=== PATIENT | male | born 1990 | race Caucasian/White ===

== ENCOUNTER 2018-08-19 05:54 | Emergency (ER) | payer OTHER ==
[~2018-08-19] VITALS: Ht 172.7 cm; Wt 68.0 kg
[2018-08-19 06:03] VITALS: BP 110/69
[2018-08-19] MEDS ORDERED: CENTANY30 GM NASAL (06:20)
== END 2018-08-19 06:42 | disposition home or self-care (01) ==
LOC: M.ERS 05:54
DX: T20.44XA Corrosion of unspecified degree of nose (septum), initial encounter (principal); T32.0 Corrosions involving less than 10% of body surface; F15.90 Other stimulant use, unspecified, uncomplicated; Z88.1 Allergy status to other antibiotic agents; Y93.89 Activity, other specified; Y92.89 Other specified places as the place of occurrence of the external cause; Y99.8 Other external cause status

== ENCOUNTER 2018-09-21 06:55 | Emergency (ER) | payer OTHER ==
[~2018-09-21] VITALS: Ht 172.7 cm; Wt 68.0 kg
[~2018-09-21 06:55] MED LIST: CENTANY30 GM NASAL
[2018-09-21 07:03] VITALS: BP 141/85
[2018-09-21] MEDS ORDERED: ULTRAM 50MG TAB50 MG PO (07:31)
[2018-09-21] MEDS ORDERED: FLEXERIL PO (07:31)
== END 2018-09-21 07:39 | disposition home or self-care (01) ==
LOC: M.ERS 06:55
DX: S29.012A Strain of muscle and tendon of back wall of thorax, initial encounter (principal); Z88.1 Allergy status to other antibiotic agents; V43.52XA Car driver injured in collision with other type car in traffic accident, initial encounter; Y93.89 Activity, other specified; Y92.89 Other specified places as the place of occurrence of the external cause; Y99.8 Other external cause status

== ENCOUNTER 2018-09-27 18:55 | Emergency (ER) | payer OTHER ==
[~2018-09-27] VITALS: Ht 172.7 cm; Wt 68.0 kg
[~2018-09-27 18:55] MED LIST changes: +FLEXERIL PO; +ULTRAM 50MG TAB50 MG PO
[2018-09-27] MEDS ORDERED: CARAFATE1 GM/10 ML PO (19:34)
[2018-09-27] MEDS ORDERED: AMOXICILLIN 50500 MG PO (19:34)
[2018-09-27 20:02] VITALS: BP 119/77
== END 2018-09-27 20:04 | disposition home or self-care (01) ==
LOC: M.ERS 18:55
DX: J02.9 Acute pharyngitis, unspecified (principal); Z88.1 Allergy status to other antibiotic agents

== ENCOUNTER 2018-10-01 22:08 | Emergency (ER) | payer OTHER ==
[~2018-10-01] VITALS: Ht 172.7 cm; Wt 68.0 kg
[~2018-10-01 22:08] MED LIST changes: +AMOXICILLIN 50500 MG PO; +CARAFATE1 GM/10 ML PO
[2018-10-01] MEDS ORDERED: DOXYCYCLINE 10100 M1 PO (22:56)
[2018-10-01 23:04] VITALS: BP 120/69
== END 2018-10-01 23:04 | disposition home or self-care (01) ==
LOC: M.ERS 22:08
DX: J06.9 Acute upper respiratory infection, unspecified (principal); F17.200 Nicotine dependence, unspecified, uncomplicated; Z88.1 Allergy status to other antibiotic agents

== ENCOUNTER 2018-10-13 18:56 | Emergency (ER) | payer OTHER ==
[~2018-10-13] VITALS: Ht 172.7 cm; Wt 68.0 kg
[~2018-10-13 18:56] MED LIST changes: +DOXYCYCLINE 10100 M1 PO
[2018-10-13 19:07] VITALS: BP 115/71
[2018-10-13] MEDS ORDERED: FLONASE 0.05%50 MCG NASAL (19:29)
[2018-10-13] MEDS ORDERED: DOXYCYCLINE 10100 MG PO (19:29)
== END 2018-10-13 19:44 | disposition home or self-care (01) ==
LOC: M.ERS 18:56
DX: J01.00 Acute maxillary sinusitis, unspecified (principal); R09.82 Postnasal drip; Z88.1 Allergy status to other antibiotic agents

== ENCOUNTER 2018-11-17 21:58 | Emergency (ER) | payer OTHER ==
[~2018-11-17] VITALS: Ht 172.7 cm; Wt 65.8 kg
[~2018-11-17 21:58] MED LIST changes: +DOXYCYCLINE 10100 MG PO; +FLONASE 0.05%50 MCG NASAL
[2018-11-17 22:04] VITALS: BP 101/68
[2018-11-17] MEDS ORDERED: MEDROLDOSEPACK PO (22:18)
[2018-11-17] MEDS ORDERED: PROMETH-CODEIN 65 ML PO (22:21)
[2018-11-17] MEDS ORDERED: AMOXIL 875 MG875 M1 PO (22:21)
== END 2018-11-17 22:44 | disposition home or self-care (01) ==
LOC: M.ERS 21:58
DX: J40 Bronchitis, not specified as acute or chronic (principal); Z98.890 Other specified postprocedural states; Z88.1 Allergy status to other antibiotic agents